=== PATIENT | female | born 1975 | race Caucasian/White ===

== ENCOUNTER → 2019-12-09 11:50 | Outpatient (BNVA) | payer OTHER, SELFPAY | PROVIDERS: PCP Family Medicine; Visit Provider Obstetrics & Gynecology | DX: N92.0 Excessive and frequent menstruation with regular cycle (principal); Z12.4 Encounter for screening for malignant neoplasm of cervix | CPT/HCPCS: 84443; 85027; 88175 ==

== ENCOUNTER → 2019-12-30 14:04 | Outpatient (BNVA) | payer OTHER, SELFPAY | PROVIDERS: PCP Family Medicine; Visit Provider Obstetrics & Gynecology | DX: N85.2 Hypertrophy of uterus (principal); D25.9 Leiomyoma of uterus, unspecified; N83.8 Other noninflammatory disorders of ovary, fallopian tube and broad ligament; N94.10 Unspecified dyspareunia | CPT/HCPCS: 76830 ==

== ENCOUNTER 2020-01-19 12:13 | Observation (INO) | payer OTHER, SELFPAY ==
[2020-01-14 09:25] VITALS: BMI 23.5
--- NOTE | 2020-01-14 10:00 | ANES.PREANE2 ---
Pre-Anesthetic Assessment Pre-Anesthetic Assessment: Height/Weight: Height 1.64 m Weight 63.049 kg Preop Diagnosis: Uterine fibroids, Menorrhagia, Endometrial polyp Proposed Procedure: Operation Date: 01/19/20 07:00 Proposed Procedures p 74845 D25.9 N92.0 Laparoscopic Assist Vaginal Hystectomy/possible total abdominal hysterectomy/possible bilateral salpingo oophorectomy(Not Applicable) - Kenji Diana MD Familial anesthetic complications: None Social: Social History: No alcohol and No tobacco Exam: Pre-Anes Outpt Exam: alert, oriented x 3, clear to auscultation bilaterally and regular rate & rhythm Airway: Cervical ROM: WNL MP: 1 Dentition: Full Anesthetic Plan: ASA status: 1 Anesthesia: General Risk of > 500 ml blood loss (7ml/kg in children): No PFSH Anesthesia PFSH: Medical History No pertinent past medical history Surgical History History of section, low transverse (~05/2006) twin gestation, in [facility] History of dilation and curettage (~2000) miscarriage at 13 weeks Family History Mother Hypertension Grandfather Hypertension maternal Stroke maternal Father Hypercholesteremia Social History Smoking and tobacco status: never smoked Alcohol intake: current Alcohol intake frequency: holidays/special occasions only Data Anesthesia Cardiac Studies: No Data to Display
[2020-01-14 10:09] LABS: Basophils % 0.6 %; Eosinophils # 0.1 10^3/uL (0.0-0.8); Eosinophils % 1.8 %; Hematocrit 41.4 % (37.0-47.0); Hemoglobin 13.1 g/dL (11.5-15.3); Lymphocytes # 2.5 10^3/uL (0.8-4.8); Lymphocytes % 34.8 %; Mean Corpuscular HGB Conc 31.6 g/dL (30.0-36.0); Mean Corpuscular Hemoglobin 27.5 pg (28.0-34.0); Mean Corpuscular Volume 86.8 fL (81-99); Mean Platelet Volume 10.2 fL (7.4-10.4); Monocytes # 0.4 10^3/uL (0.2-0.9); Monocytes % 5.8 %; Neutrophils # 4.1 10^3/uL (1.8-7.7); Neutrophils % 56.9 %; Nucleated Red Blood Cells % 0 %; Platelet Count 273 10^3/cmm (130-400); Red Blood Count 4.77 10^6/uL (4.1-5.3); Red Cell Distribution Width 14.6 % (12.1-15.1); White Blood Count 7.2 10^3/uL (4.0-10.0)
[2020-01-14 10:35] LABS: OR HCG Qualitative Urine Negative (Negative)
[2020-01-14 10:35] LABS: Add Urine Culture? No; Add Urine Microscopic? YES; Bacteria Urine TRACE; Bilirubin Urine Neg (NEGATIVE); Blood Urine Neg (Negative); Glucose Urine UA Norm (Normal); Ketones Urine Negative (Negative); Leukocyte Esterase Urine Trace (Negative); Mucus Urine TRACE; Nitrate Urine Negative (Negative); Protein Urine Neg (Negative); RBC Urine 0-4 /hpf (0-2); Squamous Epithelial Cell Urine 0-4 (0-5); Urine Appearance Clear (CLEAR); Urine Color Yellow (Yellow); Urobilinogen Urine Norm (Negative); WBC Urine RARE /hpf (0-5)
[2020-01-19] VITALS (18 sets, daily range): BP systolic 93–127; BP diastolic 44–69; PULSE 59–82; RESP 15–19; TEMP 36.2–37.2; O2SAT 95–100
--- NOTE | 2020-01-19 07:04 | P.HPUD_ITS ---
Surgery/Procedure H&P Update DATE OF PROCEDURE: January 19, 2020 DATE H&P PERFORMED: 01/01/20 H&P UPDATE INFORMATION: I have reviewed H&P completed within last 30 days, I have examined patient prior to procedure, No changes to prior documentation and [place] is [place] [facility] [place] date indicated PREOP DIAGNOSIS: Uterine fibroids, Menorrhagia, Endometrial polyp PLANNED PROCEDURE: Operation Date: 01/19/20 07:50 Proposed Procedures p 77176 D25.9 N92.0 Laparoscopic Assist Vaginal Hystectomy/possible total abdominal hysterectomy/possible bilateral salpingo oophorectomy(Not Applicable) - Kenji Diana MD
[2020-01-19] MEDS: sodium chloride 0.9% 1,000 ML 30 ML IV (07:08)
--- NOTE | 2020-01-19 08:13 | P.ANESUD_ITS ---
Pre-Anesthetic Update Pre-Anesthetic Assessment: Date of Surgery/Procedure: 01/19/20 Preop Camila gnosis: Uterine fibroids, Menorrhagia, Endometrial polyp Proposed Procedure: Operation Date: 01/19/20 07:50 Proposed Procedures p 78660 D25.9 N92.0 Laparoscopic Assist Vaginal Hystectomy/possible total abdominal hysterectomy/possible bilateral salpingo oophorectomy(Not Applicable) - Kenji Diana MD Any changes to Pre-Anesthetic Assessment?: No Last Intake: Intake Last Liquid Date 01/18/20 Last Liquid Time 20:00 Last Solid Date 01/18/20 Last Solid Time 17:30 Vitals: Temperature 97.4 F L 01/19/20 06:39 Pulse Rate 59 L 01/19/20 06:39 Respiratory Rate 18 01/19/20 06:39 Blood Pressure 99/49 01/19/20 06:39 Blood Pressure Jerrica n 65 01/19/20 06:39 Pulse Oximetry 100 01/19/20 06:39 Oxygen Delivery Me thod 01/19/20 06:35 Exam: Pre-Anes Outpt Exam: alert, oriented x 3, clear to auscultation bilaterally and regular rate & rhythm Other Pertinent Information: Other Pertinent Information: will add scopolamine patch Cardiac Studies: No Data to Display
[2020-01-19] MEDS: scopolamine 1.5 Patch 1 PATCH TRANSDERMA (08:18)
[2020-01-19] MEDS: vasopressin 20 unit/mL INJ INJECTION (09:34)
--- NOTE | 2020-01-19 11:22 | P.OP_ITS ---
Operative Report Date of procedure: January 19, 2020 Pre-op Diagnosis: Uterine fibroids, Menorrhagia, Endometrial polyp Post-op Diagnosis: Uterine fibroids, Menorrhagia, Endometrial polyp Procedure Done: Laparoscopic assisted vaginal hysterectomy with bilateral salpingectomy, >250 g and cystoscopy. Specimens removed/disposition: Uterus, cervix, bilateral fallopian tubes Surgeon: Kenji Diana President Educational Institution: None Anesthesia: General Estimated blood loss (mL): 550 IV fluids (mL): 2,200 Complications: None Findings: Multiple uterine fibroids. Normal-appearing ovaries. Condition: stable Brief History: Patient is a 44-year-old white female 4, para 3-0-1-4 with an LMP of 12/22/2019. She presented to the office on 12/09/2019 reporting heavy bleeding and pain. Cycles are regular in timing and occur monthly. She typically will bleed for 7 days with 2 to 3 days being heavy. She changes a tampon and a pad every 1-2 hours and will occasionally bleed through to her clothing. She reports the passage of up to golf ball sized clots. She reports significant cramping during the heaviest time of her periods. On abdominal exam, she was noted to have a lower abdominal irregular shaped mass extending into the pelvis. On pelvic exam, this was noted to be an irregular shaped uterus that was approximately 14 to 15 weeks size. Ultrasound showed multiple uterine fibroids with uterus measuring 14.7 x 9.6 cm. During her pelvic exam, she was also noted to have a small polyp protruding through the cervical os. Treatment options were discussed with her and she is presenting for hysterectomy. Procedure: The patient was taken to the operating room where general anesthesia was obtained. She was prepped and draped in the usual sterile fashion in the dorsal supine position with legs in Jose style stirrups. Sequential compression boots were placed prior to starting the case. Valenzuela catheter was inserted and exam under anesthesia was performed. She was found to have first to second-degree ut erine prolapse. Irregular shaped uterus was noted. Weighted speculum was placed in the vagina and the cervix was grasped with a single-tooth tenaculum. A Hulka was placed. Due to the size of the uterus, decision was made to place a supraumbilical trocar site. The area, approximately 2 fingerbreadths above the umbilicus was injected with a 50-50 mixture of 1% lidocaine with epinephrine and 0.5% Marcaine plain. Skin incision was made with a knife and a size 10 trocar and sheath were inserted under direct visualization using an Optiview type technique. Trocar was removed and replaced with just the laparoscope confirming intra-abdominal placement. The anterior abdominal wall was inspected and noted to be free of adhesions. In the right and left lower quadrants, lateral to the inferior epigastric vessels, the skin was injected with 50-50 mixture of 1% lidocaine with epinephrine and 0.5% Marcaine plain. Skin incisions were made with the knife and a 5 mm trocar and sheath were inserted under direct visualization at each site. The pelvis was inspected. Normal-appearing appendix noted. Both ovaries were noted to be normal in appearance. Patient had multiple uterine fibroids di storting the shape of the uterus including a large fundal fibroid, a right broad ligament fibroid and a posterior lower uterine segment fibroid. Using the Voyant sealing device, the left utero-ovarian ligament was sealed and cut followed by the fallopian tube. The round ligament was sealed and cut and the dissection carried along the lateral aspect of the uterus to approximately the level of the internal os. The broad ligament was and the dissection carried over the lower uterine segment. Using the Voyant sealing device, the right utero-ovarian ligament was sealed and cut followed by the fallopian tube.. The round ligament was sealed and cut. The fibroid was able to be reflected away from the right pelvic sidewall. During this process the dissection was able to be carried down until the cervix was reached. The dissection was carried over the lower uterine segment to meet with the dissection from the contralateral side. The dissection areas were noted to be hemostatic. The abdomen was deflated. The patient's legs were placed in the high lithotomy position. The Hulka was removed and a weighted speculum placed in the vagina. The cervix was regrasped with single-tooth tenaculums. The cervix was circumferentially injected with dilute Pitressin solution. A circumferential incision was made with the knife around the cervix. Bladder was bluntly dissected off of the lower uterine segment. Posterior cul-de-sac was sharply entered and the peritoneum tagged to the vaginal mucosa in the midline. A long weighted retractor was placed in the posterior cul-de-sac. The uterosacral ligaments were clamped, cut, and suture ligated with 0 Vicryl suture bilaterally. The cardinal ligaments were clamped, cut, and suture ligated with 0 Vicryl suture bilaterally. The bladder was sharply dissected away from the uterus and the anterior cul-de-sac entered. A long right angle retractor was used to elevate the bladder away from the uterus. The remaining portion of the broad ligament was serially clamped, cut, and suture ligated with 0 Vicryl suture until the uterus was completely excised. Due to the size of the uterus and multiple fibroids, the uterus was morcellated with a knife and brought out in multiple pieces. Once the uterus was removed, the pedicles were inspected and noted to be hemostatic. Posterior edge of the vaginal cuff was oversewn with 0 Vicryl suture in a running locking fashion incorporating the peritoneum to the vaginal mucosa. This extended from the 3:00 position to the 9:00 position posteriorly. The vaginal cuff was closed in a vertical fashion using 0 Vicryl suture in an interrupted [id number] fashion. The uterosacral ligaments and cardinal ligaments were tied in the midline using previously held sutures. The cuff was noted to be hemostatic. Due to the size and location of the fibroids, decision was made to perform a cystoscopy. Valenzuela catheter was removed and cystoscope inserted. Bladder was fully inspected with no growths or lesions noted. No bladder injuries were noted. Both ureters were noted to be effluxing urine well. Bladder was drained and Valenzuela catheter was reinserted. The abdomen was reinflated and and the pelvis thoroughly inspected. The areas of dissection were noted to be hemostatic. They were inspected under normal and low pressures. The abdomen was deflated and the ports removed. The 5 mm sites were closed with single stitches of 4-0 Vicryl suture. The skin incisions were closed with 4-0 Vicryl suture with skin glue applied. Patient tolerated the procedures well. Sponge needle and instrument counts were correct. DRAINS: Valenzuela catheter POSTOPERATIVE STATUS: The patient was transferred to the recovery room in satisfactory condition.
[2020-01-19] MEDS: fentaNYL 50 mcg/mL INJ 2mL IVP (11:52)
[2020-01-19] MEDS: morphine 4 mg/mL SDV 1 mL 2 MG IVP (12:00)
--- NOTE | 2020-01-19 12:11 | SUR.PHASEI ---
PT AWAKE ALERT ON RA PT STATES PAIN IS BETTER , ABD SOFT NO THIAGO PAD 3 SITES WITH EXOFIN D/I FLOWER TO DD STATLOCK TO RT THIGH, YELLOW URINE TO TUBING AND BAG.
[2020-01-19] MEDS: HYDROcodone-acetaminophen 5-325 mg Tablet PO ×2 (13:16→19:42)
--- NOTE | 2020-01-19 13:54 | SUR.PHASEI ---
1230 PT TO FLOOR AWAKE ALERT MOVES SELF TO BED WITHOUT ASSIST, BP 98/60, HRE 62, RESP 18, SATS ON RA 100%
[2020-01-19] MEDS: dextrose 5%-lactated ringers 1,000 ML 125 ML IV (14:24)
[2020-01-19] MEDS: ketorolac 30 mg/mL INJ IVP (14:24)
[2020-01-19] MEDS: phenazopyridine 100 mg Tablet 200 MG PO (14:25)
[2020-01-19] MEDS: morphine 4 mg/mL SDV 1 mL IVP (16:46)
[2020-01-19] MEDS: docusate sodium 100 mg Capsule PO (16:48)
[2020-01-20 05:47] VITALS: BP 115/58; PULSE 69; RESP 16; TEMP 36.9
[2020-01-20] MEDS: HYDROcodone-acetaminophen 5-325 mg Tablet PO (05:59)
[2020-01-20 06:14] LABS: Hematocrit 29.7 % (37.0-47.0); Hemoglobin 9.5 g/dL (11.5-15.3); Mean Corpuscular Volume 87.6 fL (81-99); Mean Platelet Volume 10.6 fL (7.4-10.4); Platelet Count 194 10^3/cmm (130-400); Red Blood Count 3.39 10^6/uL (4.1-5.3); Red Cell Distribution Width 15.5 % (12.1-15.1); White Blood Count 11.3 10^3/uL (4.0-10.0)
[2020-01-20] MEDS: phenazopyridine 100 mg Tablet 200 MG PO (08:12)
[2020-01-20] MEDS: docusate sodium 100 mg Capsule PO (08:12)
--- NOTE | 2020-01-20 09:18 | P.DS_ITS ---
Discharge Providers Date of Admission: 01/19/20 12:13 Date of Discharge: January 20, 2020 Attending Provider at Admission: Kenji Diana MD Attending Provider at Discharge: Kenji Diana MD Primary Care Provider: Rajesh Garvey MD Diagnoses at Discharge Discharge Diagnosis (1) Uterine fibroid: Status: Acute Qualifiers: Uterine leiomyoma location: intramural, submucous, and subserous Qualified Code(s): D25.1 - Intramural leiomyoma of uterus; D25.0 - Submucous leiomyoma of uterus; D25.2 - Subserosal leiomyoma of uterus (2) Menorrhagia: Status: Acute Qualifiers: Menorrhagia type: with regular cycle Qualified Code(s): N92.0 - Excessive and frequent menstruation with regular cycle (3) Endometrial polyp: Status: Acute Reason for Visit Reason for Visit: Fibroid uterus Menorrhagia Hospital Course Hospital Course: Patient is a 44-year-old white female 5, para 3-0-1-4 with an LMP of 12/21/2021 initially presented to the office with complaints of heavy periods and bleeding with sex. On evaluation she was found to have an irregular shaped, enlarged uterus consistent with fibroids and a small polyp protruding from the cervical loss. Ultrasound confirmed multiple uterine fibroids. Treatment options were discussed and she was presenting for hysterectomy. She was admitted to the hospital where a laparoscopic assisted vaginal hysterectomy with bilateral salpingectomy was performed. She tolerated the surgery well. She initially required parenteral pain medications following surgery and by the evening was still only tolerating minimal liquids. As a result she was kept through the night. POSTOPERATIVE DAY 1 Patient was reporting doing well. She was reporting tolerating liquids without nausea or vomiting. She was ambulating without lightheadedness or dizziness. She denied shortness of breath or chest pains. Valenzuela catheter had been removed that morning. She reported pain was well controlled. Physical Exam: See below Plan Patient is to increase activities during the morning. She has done well with that. She has urinated without difficulty. She tolerated a regular diet without nausea or vomiting. As a result, she was being discharged home. Discharge instructions were discussed with her. She was to follow-up in the office in approximately 2 and 6 weeks. Physical Exam Const: COMMON NORMALS: no acute distress, average body habitus, alert and well nourished GENERAL APPEARANCE: well developed ORIENTATION/CONSCIOUSNESS: Yes oriented to person, Yes oriented to place and Yes oriented to time Resp: COMMON NORMALS: normal respiratory effort and clear to auscultation bilaterally AUSCULTATION: clear to auscultation bilaterally Cardio: COMMON NORMALS: regular rate, regular rhythm, No gallops present (Cardio), No murmurs present (Cardio) and No rub (Cardio) RATE: regular rate RHYTHM: regular rhythm GI: COMMON NORMALS: Soft to palpation, No hepatosplenomegaly present and no masses INSPECTION: Yes incision (Laparoscopy sites well approximated without erythema noted) AUSCULTATION: Yes normoactive bowel sounds PALPATION: Yes Soft to palpation, Yes Tenderness to palpation present (GI) (Mild tenderness lower abdomen.), Yes No hepatosplenomegaly present and No Hernia present : EXTERNAL FEMALE EXAM: No Hernia present Extremity: COMMON NORMALS: no clubbing, cyanosis or edema and no calf tenderness Neuro: SENSORIUM/ORIENTATION: Yes alert, Yes oriented to person, Yes oriented to place and Yes oriented to time Psych: COMMON NORMALS: normal affect MOOD & AFFECT: Yes euthymic mood Urinary Catheter Management^: Valenzuela: Cath Placed During This Visit: yes Urinary Catheter Date of Insertion: 01/19/20 Urinary Catheter Time of Insertion: 08:20 Discharge Data Data Completed and Pending: Pending at discharge Category Date Time Status ES surgery / GI i mages Routine Exams 01/19/20 08:14 Taken Type and Screen R outine Lab 01/14/20 09:50 Uncollected Pathology: Surgic al [PTH] Routine Pth 01/19/20 11:38 Ordered Labs from last 24 hours 01/20/20 05:30 WBC 11.3 H RBC 3.39 L Hgb 9.5 L Hct 29.7 L MCV 87.6 MCH 28.0 MCHC 32.0 RDW 15.5 H Plt Count 194 MPV 10.6 H Vitals: Last Vital Signs Temp 98.4 F 01/20/20 05:47 Pulse 69 01/20/20 05:47 Resp 16 01/20/20 05:47 BP 115/58 01/20/20 05:47 Pulse Ox 97 01/19/20 18:45 Discharge Plan Discharge Patient Disposition: Home, Self-Care Condition: Stable Prescriptions: New hydrocodone-acetaminophen 5-325 mg Tablet 1 - 2 tab PO Q6H PRN (Reason: Moderate To Severe Pain) Qty: 30 RF: 0 ibuprofen 800 mg Tablet 800 mg PO TID PRN (Reason: pain) Qty: 40 RF: 0 No Action No Known Home Medications RF: 0 Discharge Orders: Discharge Order (Routine); Ordered 01/20/20 Ordered By: Kenji Diana Referrals: Kenji Diana MD [Physician] - 02/01/20 8:45 am (Postoperative visit) Discharge Diet: Regular Discharge Activity: Limit activity as instructed Patient Instructions: OB Abdominal Surgery - [facility] [place] [facility] Discharge Attestations Time Spent in Discharge Care*: less than 30 min Quality Metrics Clinical Quality Measures During this hospital stay, did patient experience: None Coding Level of Care Code Acute Physician Advisor for Chg Fwd Diagnoses Uterine fibroid D25.1; D25.0; D25.2 Uterine leiomyoma location: intramural, submucous, and subserous Menorrhagia N92.0 Menorrhagia type: with regular cycle Endometrial polyp N84.0
[2020-01-20 10:08] VITALS: BP 100/55; PULSE 54; RESP 16; TEMP 36.8; O2SAT 99
== END 2020-01-20 10:29 | disposition home or self-care (01) ==
LOC: OBGYN 12:14
PROVIDERS: Admitting Provider Obstetrics & Gynecology; PCP Family Medicine; Visit Provider Obstetrics & Gynecology
PROC: 0UT9FZZ Resection of Uterus, Via Natural or Artificial Opening With Percutaneous Endoscopic Assistance (ICD-10-PCS; CPT 58554; principal; 2020-01-19 07:50)
PROC: (CPT 58720; 2020-01-19 07:50)
PROC: 0TJB8ZZ Inspection of Bladder, Via Natural or Artificial Opening Endoscopic (ICD-10-PCS; CPT 52000; 2020-01-19 07:50)
DX: D25.1 Intramural leiomyoma of uterus (principal); N92.0 Excessive and frequent menstruation with regular cycle; N84.0 Polyp of corpus uteri
CPT/HCPCS: 58554; 12345; 36415; 51702; 81001; 81003; 84703; 85025; 85027; 88302; 88307; 96361; 96365; 96375; G0378; J0690; J1100; J1885; J2001; J2270; J2405; J2704; J2710; J3010; J3490; J7030

== ENCOUNTER → 2020-02-17 11:33 | Outpatient (BNVA) | payer OTHER, SELFPAY | PROVIDERS: PCP Family Medicine; Visit Provider Obstetrics & Gynecology | DX: R30.0 Dysuria (principal); N76.2 Acute vulvitis; Z48.816 Encounter for surgical aftercare following surgery on the genitourinary system | CPT/HCPCS: 80053; 81000 ==

== ENCOUNTER → 2020-12-07 09:09 | Outpatient (BNVA) | payer BC, SELFPAY | PROVIDERS: PCP Family Medicine; Visit Provider Obstetrics & Gynecology | DX: N90.89 Other specified noninflammatory disorders of vulva and perineum (principal) | CPT/HCPCS: 88305 ==